=== PATIENT | female | born 2000 | race Caucasian/White ===

== ENCOUNTER 2020-12-11 23:15 | Inpatient (IN) ==
[~2020-12-11 23:15] MED LIST: Famotidine 20 MG/2 ML VIAL IVP PRN; Lidocaine 1% 20 ML MDV INFILT PRN; Metoclopramide 10 MG/2 ML VIAL IVP PRN; Naloxone 0.4 MG/ML INJ IVP PRN; Penicillin G Potassium 5,000,000 UNIT in 0.9 % Sodium Chloride Mini Bag 100 ML IVPB ONE
[2020-12-11 23:36] LABS: Basophils % 0.3 %; Eosinophils # 0.1 K/mcL (0.0-0.6); Eosinophils % 1.1 %; Hematocrit 31.4 % (35.3-44.9); Hemoglobin 9.8 g/dL (11.5-15.4); Immature Granulocytes % 1.5 % (0-4); Lymphocytes % 18.2 %; Mean Corpuscular HGB Conc 31.2 g/dL (31.6-35.5); Mean Corpuscular Hemoglobin 24.8 pg (28.0-33.3); Mean Corpuscular Volume 79.5 fL (83.0-100.0); Mean Platelet Volume 11.1 fL (9.4-12.4); Monocytes # 0.9 K/mcL (0.0-1.3); Monocytes % 8.3 %; Neutrophils # 7.7 K/mcL (1.6-8.9); Platelet Count 276 K/mcL (140-400); Red Blood Count 3.95 M/mcL (3.82-4.97); Red Cell Distribution Width 14.8 % (11.5-14.5); Segmented Neutrophils % 70.6 %; White Blood Count 10.8 K/mcL (4.3-11.1)
[2020-12-11 23:43] LABS: Creatinine,Urine 85 mg/dL; Protein/Creatinine Ratio,Urine 0.28 mg/mg (0.00-0.20)
[2020-12-11 23:53] LABS: Alanine Aminotransferase 6 Units/L (7-52); Aspartate Amino Transferase 10 Units/L (13-39); BUN/Creatinine Ratio 13 (6-26); Blood Urea Nitrogen 8 mg/dL (6-20); Lactate Dehydrogenase 142 Units/L (140-271); Uric Acid 4.1 mg/dL (2.3-7.6); eGFR For African Americans > 60 (> 60); eGFR For Non-African Americans > 60 (> 60)
[2020-12-11] MEDS: Ringers Solution, Lactated 1,000 ML IVC SCH (23:55)
[2020-12-12 00:12] LABS: Influenza A PCR Negative (Negative); Influenza B PCR Negative (Negative); Resp. Syncytial Virus PCR Negative (Negative); SARS-CoV-2 by PCR (In House) Negative (Negative)
[2020-12-12] MEDS ORDERED: *HR* Labetalol 20 MG/4 ML SYRINGE IVP PRN ×3 (00:16)
[2020-12-12] MEDS ORDERED: *HR* Labetalol 20 MG/4 ML SYRINGE IVP ONE (00:17)
[2020-12-12 00:30] LABS: Amphetamine Screen,Urine Negative ng/mL (Cutoff=1000); Barbiturate Screen,Urine Negative ng/mL (Cutoff=200); Benzodiazepines Screen,Urine Negative ng/mL (Cutoff=200); Cannabinoid Screen,Urine Positive ng/mL (Cutoff = 50); Cocaine Screen,Urine Negative ng/mL (Cutoff= 300); Opiate Screen,Urine Negative ng/mL (Cutoff=300); Phencyclidine Screen,Urine Negative ng/mL (Cutoff=25)
[2020-12-12] MEDS ORDERED: *HR* Nalbuphine 10 MG/ML AMPUL IV PRN (00:49)
[2020-12-12] MEDS ORDERED: *HR* FentaNYL (PF) 100 MCG/2 ML VIAL EP ONE (01:14)
[2020-12-12] MEDS ORDERED: EPHEDrine 50 MG/ML VIAL IVP PRN (01:14)
[2020-12-12] MEDS ORDERED: Ropivacaine/PF 0.2% 20 ML VIAL EP ONE (01:14)
[2020-12-12] MEDS ORDERED: Epidural Premix (fent/bupiv) 110 ML EP SCH (01:15)
[2020-12-12] MEDS ORDERED: Ropivacaine/PF 0.2% 20 ML VIAL ONE (02:31)
[2020-12-12] MEDS ORDERED: *HR* FentaNYL (PF) 100 MCG/2 ML VIAL ONE ×2 (02:31→11:13)
[2020-12-12] MEDS ORDERED: Oxytocin 20 units/ LR 1000 mL 20 UNIT/1,000 ML BAG IVC SCH ×2 (03:00→13:03)
[2020-12-12] MEDS: Ringers Solution, Lactated 1,000 ML IVC SCH (04:16)
[2020-12-12] MEDS: Penicillin G Potassium 2,500,000 UNIT/105 ML MLS IVPB SCH ×2 (04:19→08:13)
[2020-12-12] MEDS ORDERED: Ondansetron 4 MG/2 ML VIAL IVP PRN (05:44)
[2020-12-12] MEDS ORDERED: *HR* FentaNYL (PF) 250 MCG/5 ML VIAL ONE (06:59)
[2020-12-12] MEDS ORDERED: Metoclopramide 10 MG/2 ML VIAL IVP ONE (08:03)
[2020-12-12] MEDS ORDERED: miSOPROStoL 100 MCG TABLET PO STA (11:16)
[2020-12-12] MEDS ORDERED: EPHEDrine 50 MG/ML VIAL ONE (11:38)
[2020-12-12] MEDS ORDERED: Benzocaine/Menthol 56 GM AEROSOL SPRAY TP PRN (13:03)
[2020-12-12] MEDS ORDERED: Rho Immune Globulin 1,500 UNIT SYRINGE IM PRN (13:03)
[2020-12-12] MEDS ORDERED: Acetaminophen 325 MG TABLET PO PRN (13:03)
[2020-12-12] MEDS ORDERED: Lanolin 7 G OINT...G. TP PRN (13:03)
[2020-12-12 20:54] VITALS: O2SAT 99
[2020-12-12] MEDS: Ibuprofen 600 MG TABLET PO PRN (21:35)
[2020-12-13 05:41] LABS: Basophils # 0.1 K/mcL (0.0-0.2); Basophils % 0.3 %; Eosinophils % 0.2 %; Hemoglobin 9.1 g/dL (11.5-15.4); Immature Granulocytes % 1.3 % (0-4); Lymphocytes # 3.2 K/mcL (0.6-4.6); Lymphocytes % 19.6 %; Mean Corpuscular HGB Conc 31.4 g/dL (31.6-35.5); Mean Corpuscular Volume 79.7 fL (83.0-100.0); Mean Platelet Volume 10.9 fL (9.4-12.4); Monocytes # 1.2 K/mcL (0.0-1.3); Monocytes % 7.6 %; Neutrophils # 11.6 K/mcL (1.6-8.9); Platelet Count 251 K/mcL (140-400); Red Blood Count 3.64 M/mcL (3.82-4.97); Red Cell Distribution Width 15.1 % (11.5-14.5); White Blood Count 16.3 K/mcL (4.3-11.1)
[2020-12-13 06:26] VITALS: TEMP 98
[2020-12-13 08:28] VITALS: BP 134/93; PULSE 87
[2020-12-13] MEDS: Ibuprofen 600 MG TABLET PO PRN (08:55)
[2020-12-13] MEDS ORDERED: Prenatal Vit/FA 1 EACH TABLET PO SCH (09:00)
[2020-12-13 12:00] LABS: Alanine Aminotransferase 9 Units/L (7-52); Aspartate Amino Transferase 18 Units/L (13-39); BUN/Creatinine Ratio 10 (6-26); Blood Urea Nitrogen 6 mg/dL (6-20); Lactate Dehydrogenase 242 Units/L (140-271); Uric Acid 4.3 mg/dL (2.3-7.6); eGFR For African Americans > 60 (> 60); eGFR For Non-African Americans > 60 (> 60)
== END 2020-12-13 15:35 | disposition home or self-care (01) | DRG 560 ==
LOC: 1NENULAB → 1NENUOBS 12-12 12:27
PROVIDERS: ADMIT Registered Nurse; ATTEND Registered Nurse